=== PATIENT | female | born 1965 | race African-American/Black ===

== ENCOUNTER 2017-10-21 05:42 | Day surgery (SDC) | payer BC ==
[~2017-10-21] VITALS: Ht 167.6 cm; Wt 95.3 kg
[2017-10-21 06:29] LABS: BASOPHILS % 0.7 % (0.0-2.0); EOSINOPHILS % 1.3 % (0.0-5.0); HEMOGLOBIN. 12.1 g/dL (12.0-16.0); LYMPHOCYTES % 52.3 % (20.0-50.0); MEAN CORPUSCULAR HEMOGLOBIN 32.8 pg (28.0-32.0); MEAN CORPUSCULAR VOLUME 97.3 fL (81.0-99.0); MEAN PLATELET VOLUME 7.6 fl (7.4-10.4); MONOCYTES % 5.3 % (2.0-8.0); NEUTROPHILS % 40.4 % (40.0-76.0); PLATELET 309 x1000/uL (130-400); RED CELL DISTRIBUTION WIDTH 12.8 % (11.6-14.6)
[2017-10-21] MEDS ORDERED: LACTATED RINGERS 1,000 ML IV SCH (06:30)
[2017-10-21] MEDS ORDERED: PROPOFOL 200MG/20ML VIAL IV ONE (07:35)
[2017-10-21] MEDS ORDERED: LIDOCAINE HCL/PF 1% 10 MG/ML 5ML VIAL ONE (07:35)
[2017-10-21] MEDS ORDERED: HYDROMORPHONE HCL/PF 2MG/ML CPJ IV PRN (08:00)
[2017-10-21] MEDS ORDERED: LABETALOL 5MG/ML SYR 20 MG/4 ML SYRINGE IV PRN (08:00)
[2017-10-21] MEDS ORDERED: MEPERIDINE HCL/PF 25MG/ML CPJ IV PRN (08:00)
[2017-10-21] MEDS ORDERED: ONDANSETRON HCL 4MG/2ML VIAL IV PRN (08:00)
== END 2017-10-21 10:05 | disposition home or self-care (01) ==
LOC: OR 05:42
PROVIDERS: ATTEND Pathology Anatomic Pathology & Clinical Pathology
DX: D46.9 Myelodysplastic syndrome, unspecified (principal); I10 Essential (primary) hypertension; Z86.2 Personal history of diseases of the blood and blood-forming organs and certain disorders involving the immune mechanism; Z90.710 Acquired absence of both cervix and uterus
CPT/HCPCS: 36415; 38220; 85025; 85060; 85097; 88313; J3490; J7120; J2704